=== PATIENT | female | born 1980 | race Two or more races ===

== ENCOUNTER → 2022-07-19 | Emergency (ER) | payer OTHER ==
[~2022-07-19] VITALS: Ht 170.2 cm; Wt 110.0 kg
[~2022-07-19] MED LIST: ACETAMINOPHEN 500 MG TAB PO ONE
[2022-07-19 12:25] VITALS: BP 149/102
== END | disposition left against medical advice (07) ==
LOC: ER 11:40
DX: R05.9 Cough, unspecified (principal); R51.9 Headache, unspecified; Z20.822 Contact with and (suspected) exposure to COVID-19; Z53.21 Procedure and treatment not carried out due to patient leaving prior to being seen by health care provider
CPT/HCPCS: 36415; 87426